=== PATIENT | female | born 1985 | race Two or more races ===

== ENCOUNTER 2024-07-21 10:21 | Emergency (ER) | payer OTHER, SELFPAY ==
[2024-07-21] VITALS (7 sets, daily range): BP systolic 106–120; BP diastolic 69–77; BMI 24.5
--- NOTE | 2024-07-21 10:54 | ED.GENMED ---
History of Present Illness
General
Chief Complaint: Fever
Source: patient
Exam Limitations: none
Time Seen by Provider: 07/21/24 10:45
History of Present Illness
History of Present Illness:
39-year-old female otherwise healthy presents with 3 to 4 days worth of fever cough chest congestion and shortness of breath. She also notes body aches. There has been no nausea or vomiting. She notes her daughters were sick but are better
currently. She does not take any medications regularly and a version of Tylenol last evening. No other complaints
Phy Exam
Physical Exam
Physical Exam:
General: Well-appearing female no acute respiratory distress
HEENT: Normocephalic atraumatic posterior pharynx without erythema neck is supple no adenopathy
Heart: Regular rate and rhythm
Lungs: Clear no wheeze
Abdomen is soft nontender nondistended
Extremities: No cyanosis
Course
Orders/Labs/Results
Orders:
Orders
07/21/24 10:51
0.9% Sodium Chloride 1000 ml [Nss] 1,000 ml IV BOLUS
07/21/24 10:52
CR Chest - 2 Views Urgent
Comment:
Reason For Exam: fever, cough
07/21/24 11:08
COVID-19 Antigen Urgent
Source: Nasal Swab
Complete Blood Count/With Diff Urgent
Comprehensive Metabolic Panel Urgent
Influenza A+B Rapid Molecular Urgent
MATT Source: Nasal Swab
Specimen Description:
Abnormal Lab Results
07/21/24
11:08
WBC 3.8 L 10^3/uL
(4.8-10.8)
Hct 36.6 L %
(37.0-47.0)
RDW 11.4 L %
(11.5-14.5)
Absolute Lymphs (auto) 0.8 L 10^3/uL
(1.2-3.4)
Lymphocytes % 20.1 L %
(20.5-51.1)
Monocytes % 11.5 H %
(1.7-9.3)
Creatinine 0.5 L mg/dL
(0.6-1.0)
Glucose 110 H mg/dl
(70-99)
Alkaline Phosphatase 37 L U/L
(38-126)
07/21/24 11:08
07/21/24 11:08
Vital Signs
Initial and Last Documented VS:
Initial Vital Signs
Temp Pulse Resp BP Pulse Ox
97.9 F 109 16 106/69 98
07/21/24 10:36 07/21/24 10:36 07/21/24 10:36 07/21/24 10:36 07/21/24 10:36
Last Documented Vital Signs
Temp Pulse Resp BP Pulse Ox
97.9 F 86 20 113/77 98
07/21/24 10:36 07/21/24 12:43 07/21/24 12:43 07/21/24 12:43 07/21/24 12:43
MDM/Problems Addressed
Differential Diagnosis Includes:
Fever myalgias cough. Consider viral illness will check for COVID and flu. Will also check chest x-ray to evaluate for pneumonia. Labs pending to evaluate for electrolyte abnormality. Fluids ordered.
*Critical Care Note
Total Time (30-74mins, 75-104mins- exclusive of procedures): Not Applicable
Update Note
Update Note:
COVID and flu are negative. Chest x-ray clear. Overall nontoxic not hypoxic suspect underlying viral illness. Recommended supportive care with hydration and fever control if needed. Stable for discharge
ED Attending Note
-
Portions of this chart may have been created with voice recognition software.� Occasional wrong word or��sound alike� substitutions may have occurred due to the inherent limitations of voice recognition software.
Discharge Plan
Departure
Patient Disposition: Home (Routine Discharge)
Date of Disposition: 07/21/24
Time of Disposition: 13:36
Patient with high blood pressure during this ER visit?: No
Discharge Problem:
Upper respiratory infection, viral
Instructions: Viral Syndrome (DC)
Referrals:
PRIVATE,PHYSICIAN [Family Provider] -
Activity Restrictions/Additional Instructions:
Rest. Drink plenty of fluids. Use ibuprofen or Tylenol for fever. Return if worse otherwise follow-up with your doctor
Interventions
Interventions:
*Risk Screen - Suicide Last Done: 07/21/24 10:40
*Neglect/Abuse Screening Last Done: 07/21/24 10:40
ED- Fall Risk Assessment Last Done: 07/21/24 11:23
ED- Neurological Assessment Last Done: 07/21/24 11:23
ED-Skin Assessment Last Done: 07/21/24 11:23
Discharge Date and Time
Print Language: [place]
[2024-07-21 11:23] LABS: % Basophils 0.3 % (0-2); % Eosinophils 1.3 % (0-6); % Immature Granulocytes 0.3 % (0-0.5); % Lymphocytes 20.1 % (20.5-51.1); % Monocytes 11.5 % (1.7-9.3); % Neutrophils 66.5 % (42.2-75.2); Absolute Eosinophils 0.1 10^3/uL (0-0.7); Absolute Lymphocytes 0.8 10^3/uL (1.2-3.4); Absolute Monocytes 0.4 10^3/uL (0.1-0.6); Absolute Neutrophils 2.6 10^3/uL (1.4-6.5); Hematocrit 36.6 % (37.0-47.0); Hemoglobin 12.9 g/dL (12.0-16.0); Mean Corp Hgb Conc. 35.2 g/dL (33.0-37.0); Mean Corpuscular Hgb 29.4 pg (27.0-31.0); Mean Corpuscular Volume 83.4 fL (81.0-99.0); Mean Platelet Volume 9.9 fL (7.4-10.4); Nucleated Red Blood Cells % 0 %; Platelet Count 197 10^3/uL (130-400); Red Blood Cell Count 4.39 10^6/uL (4.20-5.40); Red Cell Dist. Width 11.4 % (11.5-14.5); White Blood Cell Count 3.8 10^3/uL (4.8-10.8)
[2024-07-21] MEDS: NSS 1000 IV (11:30)
[2024-07-21 11:35] LABS: ALT (SGPT) 12 U/L (0-35); AST (SGOT) 17 U/L (14-36); Albumin 4.2 g/dl (3.5-5.0); Alkaline Phosphatase 37 U/L (38-126); Blood Urea Nitrogen 10 mg/dl (7-17); COVID-19 Antigen Negative (Negative); Calcium 9.1 mg/dl (8.4-10.2); Carbon Dioxide 24 mmol/L (22-30); Chloride 102 mmol/L (98-107); Estimated Creatinine Clearance 105 ml/min; Glucose 110 mg/dl (70-99); Potassium 3.7 mmol/L (3.5-5.1); Sodium 141 mmol/L (135-145); Total Bilirubin 0.9 mg/dl (0.2-1.3); Total Protein 6.9 g/dl (6.3-8.2); eGFR > 60.00
== END 2024-07-21 13:52 | disposition home or self-care (01) ==
LOC: EMR 10:21
PROVIDERS: Physician Assistant; EMERGENCY PHYSICIAN Emergency Medicine
DX: J06.9 Acute upper respiratory infection, unspecified (principal)
CPT/HCPCS: 99283; 96360; 71046; 80053; 85025; 87502; 87811

== ENCOUNTER 2025-05-17 09:18 | Emergency (ER) | payer MEDICAID, SELFPAY ==
[2025-05-17 09:21] VITALS: BP 121/78
--- NOTE | 2025-05-17 09:55 | ED.GENMED ---
History of Present Illness
General
Chief Complaint: Musculo-Skeletal Complaint
Source: patient and family
Exam Limitations: none
Time Seen by Provider: 05/17/25 09:25
Nursing documentation reviewed up to this point in time: agreed with
History of Present Illness
History of Present Illness:
Patient is a 40-year-old female presents to the ER for evaluation of right ankle discomfort. Patient twisted her right ankle several weeks ago and still has had some discomfort. He has not taken anything for pain. No other injury. Patient denies
any pain to calf or swelling.
Phy Exam
General Physical Exam
General Presentation: no apparent distress
General age: appears stated age
General Skin: warm and dry
General Habitus: normal
General Mental: alert
General Hydration: appears well hydrated
Neurological Exam
Neurological Exam: alert and oriented x3
Musculoskeletal Exam
Musculoskeletal Exam: other (Right lower extremity strong pulses no obvious swelling to the ankle mildly tender to right lateral malleolus no dorsal foot tenderness no proximal tib-fib tenderness no calf pain or calf swelling.)
Skin Exam
Skin Exam: normal color and warm/dry
Psychiatric Exam
Psychiatric Exam: normal mood/affect
Course
Orders/Labs/Results
Orders:
Orders
05/17/25 09:24
Ankle, Right 3 view CR [CR Ankle - Right Min 3 Views *] Urgent
Comment:
Reason For Exam: pain
05/17/25 09:54
Liban Wrap Right-Treatment ONCE
Comment: ankle
05/17/25 09:55
Ibuprofen [Motrin] 600 mg PO NOW STA
Vital Signs
Initial and Last Documented VS:
Initial Vital Signs
Pulse Resp BP Pulse Ox
74 18 121/78 99
05/17/25 09:21 05/17/25 09:21 05/17/25 09:21 05/17/25 09:21
Last Documented Vital Signs
Pulse Resp BP Pulse Ox
74 18 121/78 99
05/17/25 09:21 05/17/25 09:21 05/17/25 09:21 05/17/25 09:59
MDM/Problems Addressed
Differential Diagnosis Includes:
Not limited ankle sprain fracture
MDM/Problems Addressed:
Symptoms are consistent with mild ankle sprain. Patient is in no acute distress she has not taken anything for pain will recommend ibuprofen and Liban wrap as needed ice elevation rest
*Radiology
Radiology exam reviewed: radiology read reviewed
*Pulse Oximetry
SaO2: 99
Oxygen Mode of Delivery: Room air
Patient hypoxic: no
*Critical Care Note
Total Time (30-74mins, 75-104mins- exclusive of procedures): Not Applicable
ED Attending Note
-
Portions of this chart may have been created with voice recognition software.� Occasional wrong word or��sound alike� substitutions may have occurred due to the inherent limitations of voice recognition software.
Discharge Plan
Departure
Patient Disposition: Home (Routine Discharge)
Date of Disposition: 05/17/25
Time of Disposition: 09:57
Patient with high blood pressure during this ER visit?: No
Condition: Fair
Covid-19: Not Applicable
Discharge Problem:
Right ankle sprain
Instructions: Ankle sprain - ED (DC)
Referrals:
NONE,* [Family Provider, Internal Medicine]
Activity Restrictions/Additional Instructions:
As discussed you may wear Liban wrap as needed for support throughout the day remove at night while sleeping.
Try to rest keep elevated when possible.
You may take ibuprofen 400-600 mg every 8 hours as needed with food for discomfort. Follow-up with your family doctor next several days return if any worsening of symptoms.
Interventions
Interventions:
*Risk Screen - Suicide Last Done: 05/17/25 09:21
*General Assessment Last Done: 05/17/25 09:21
*Neglect/Abuse Screening Last Done: 05/17/25 09:21
*ED- Fall Risk Assessment Last Done: 05/17/25 10:25
*ED COVID-19 Vaccine History Last Done: 05/17/25 10:25
*Nursing Disposition Last Done: 05/17/25 10:25
ED-Musculoskeletal Assessment Last Done: 05/17/25 09:52
Discharge Date and Time
Discharge Date/Time: 05/17/25 10:25
Print Language: Croatian
[2025-05-17] MEDS: MOTRIN 600 MG PO (09:59)
== END 2025-05-17 10:25 | disposition home or self-care (01) ==
LOC: EMR 09:18
PROVIDERS: EMERGENCY PHYSICIAN Emergency Medicine
DX: S93.401A Sprain of unspecified ligament of right ankle, initial encounter (principal); X50.1XXA Overexertion from prolonged static or awkward postures, initial encounter
CPT/HCPCS: 99283; 73610

== ENCOUNTER 2025-08-10 19:40 | Emergency (ER) | payer MEDICAID, SELFPAY ==
[2025-08-10 19:48] VITALS: BP 122/48
[2025-08-10 21:30] VITALS: BMI 28.5
[2025-08-10 21:35] VITALS: BP 119/86
[2025-08-10] MEDS: TYLENOL 1000 MG PO (22:50)
[2025-08-10] MEDS: ANESTHETIC LOZENGE 1 LOZENGE PO (22:51)
--- NOTE | 2025-08-10 22:53 | ED.GENMED ---
History of Present Illness
General
Chief Complaint: Throat Problem
Source: patient, family and community center director
Time Seen by Provider: 08/10/25 22:13
History of Present Illness
History of Present Illness:
40-year-old female with no significant past medical history presents to the emergency department for evaluation of a sore throat, nasal congestion and mild cough over the last 2 days, slightly decreased p.o. intake to solids today. No reported
fevers but has felt feverish and bodyaches. No known sick contacts, recent travel or recent antibiotics. Denies any abdominal pain or GI related symptoms. No other concerns presently. Has not taken any medications for the symptoms.
Past History
Past History
ED Past Medical History: None
ED Past Surgical History:
Social History
Tobacco: Non-smoker
Alcohol: None
Drug: None
Personal:
Living: with family
Review of Systems
Review of Systems
All Other Systems: ROS reviewed and negative except as documented in HPI and ROS
Phy Exam
Physical Exam
Physical Exam:
GENERAL: Alert , in no apparent distress
HEAD: Normocephalic atraumatic
EYE: conjunctiva clear
NECK: Supple, no significant adenopathy.
ENT: o/p clr, mmm. No tonsillar edema or exudates, uvula midline, airway patent, no stridor or trismus, no drooling, TMs clear bilateral, no effusions.
CARDIAC: Regular rate and rhythm
LUNGS: Clear breath sounds bilaterally, no acute respiratory distress, no wheezes/rales/rhonchi
NEUROLOGICAL: Alert and oriented
SKIN: Warm and dry, skin intact.
MUSCULOSKELETAL: well perfused.
PSYCH: Normal and appropriate interaction.
Scores
Heart Failure Risk
Heart Failure Risk Score: Not Applicable
Heart Score for Chest Pain Patients
STEMI patient?: Not applicable
Withdrawal Assessment of Alcohol
Withdrawal Assessment Completed?: Not applicable
Course
Orders/Labs/Results
Orders:
Orders
08/10/25 19:54
Rapid Strep Group A Urgent
MATT Source: Throat/Pharynx
Specimen Description:
Date Specimen was Collected: 08/10/25
Time Specimen was Collected: 19:53
08/10/25 22:13
COVID-19 Antigen Urgent
Source: Nasal Swab
Influenza A+B Rapid Molecular Urgent
MATT Source: Nasal Swab
Specimen Description:
08/10/25 22:38
Acetaminophen [Tylenol] 1,000 mg PO NOW STA
Benzocaine/Menthol [Anesthetic Lozenge] 1 lozenge PO NOW STA
Vital Signs
Initial and Last Documented VS:
Initial Vital Signs
Temp Pulse Resp BP Pulse Ox
97.4 F 75 18 122/48 99
08/10/25 19:48 08/10/25 19:48 08/10/25 19:48 08/10/25 19:48 08/10/25 19:48
Last Documented Vital Signs
Temp Pulse Resp BP Pulse Ox
98.6 F 75 18 119/86 99
08/10/25 21:35 08/10/25 21:35 08/10/25 21:35 08/10/25 21:35 08/10/25 22:54
MDM/Problems Addressed
Differential Diagnosis Includes:
COVID
Flu
Strep Throat
Pharyngitis
Laryngitis
NEWSPAPER OR PERIODICAL EDITOR
Retropharyngeal abscess
MDM/Problems Addressed:
40-year-old female presenting to the ER for evaluation of a sore throat and other mild URI-like symptoms that been ongoing for the last 2 days. Afebrile here and in no acute distress, tolerating secretions. Doubt any emergent pathology. Strep
testing was done in triage and is negative. Offered COVID and flu however patient declines. I did order Cepacol lozenge or and Motrin. Advised supportive care otherwise. Stable for discharge home.
*Pulse Oximetry
SaO2: 99
Oxygen Mode of Delivery: Room air
Patient hypoxic: no
*Critical Care Note
Total Time (30-74mins, 75-104mins- exclusive of procedures): Not Applicable
ED Attending Note
-
Portions of this chart may have been created with voice recognition software.� Occasional wrong word or��sound alike� substitutions may have occurred due to the inherent limitations of voice recognition software.
Discharge Plan
Departure
Patient Disposition: Home (Routine Discharge)
Date of Disposition: 08/10/25
Time of Disposition: 22:53
Patient with high blood pressure during this ER visit?: No
Discharge Problem:
Sore throat
Instructions: Sore Throat, Adult (DC)
Prescriptions:
No Action
No Current Medications
0
Referrals:
NONE,* [Family Provider, Internal Medicine]
Interventions
Interventions:
*Risk Screen - Suicide Last Done: 08/10/25 20:13
*General Assessment Last Done: 08/10/25 21:33
*Neglect/Abuse Screening Last Done: 08/10/25 20:13
*ED- Fall Risk Assessment Last Done: 08/10/25 21:33
*ED COVID-19 Vaccine History Last Done: 08/10/25 21:33
*ED Influenza Vaccine History Last Done: 08/10/25 21:33
*Nursing Disposition Last Done: 08/10/25 22:58
ED-EENT Assessment Last Done: 08/10/25 21:36
ED- Pulmonary Assessment Last Done: 08/10/25 21:36
Discharge Date and Time
Discharge Date/Time: 08/10/25 22:59
Print Language: [place]
== END 2025-08-10 22:59 | disposition home or self-care (01) ==
LOC: EMR 19:40
PROVIDERS: EMERGENCY PHYSICIAN Emergency Medicine
DX: J02.9 Acute pharyngitis, unspecified (principal); R05.9 Cough, unspecified
CPT/HCPCS: 99284; 87070; 87880